=== PATIENT | female | born 1930 ===

== ENCOUNTER 2017-09-15 12:34 | Outpatient (CLI) | payer OTHER ==
[~2017-09-15 12:34] MED LIST: DOLOGESIC CAPSU1 CAP PO; OSEL75CA PO; TUSICOF LIQUID120 ML PO
== END 2017-09-15 12:40 | disposition home or self-care (01) ==
LOC: RAD 12:34
DX: J45.998 Other asthma (principal)

== ENCOUNTER 2017-09-20 15:42 | Outpatient (CLI) | payer OTHER | END 2017-09-20 15:43 | disposition home or self-care (01) | LOC: EKG 15:42 | DX: R94.31 Abnormal electrocardiogram [ECG] [EKG] (principal) ==

== ENCOUNTER 2018-03-05 08:51 | Outpatient (CLI) | payer OTHER | END 2018-03-05 09:13 | disposition home or self-care (01) | LOC: RAD 08:51 | DX: S63.200A Unspecified subluxation of right index finger, initial encounter (principal); K57.32 Diverticulitis of large intestine without perforation or abscess without bleeding ==